=== PATIENT | male | born 1950 | race Caucasian/White ===

== ENCOUNTER → 2017-06-12 | Outpatient (CLI) | payer OTHER, BC | LOC: FIMAGING 11:17 → EDSTATUS 11:18 | PROVIDERS: ATTEND Physician Assistant Medical | DX: J40 Bronchitis, not specified as acute or chronic (principal); J98.4 Other disorders of lung; I25.10 Atherosclerotic heart disease of native coronary artery without angina pectoris; Z87.74 Personal history of (corrected) congenital malformations of heart and circulatory system ==

== ENCOUNTER → 2017-06-14 | Outpatient (CLI) | payer OTHER, BC ==
[~2017-06-14] MED LIST: IOPAMIDOL (ISOVUE-300) 100 ML BTL ONE
== END ==
LOC: CIMAGING 14:18
PROVIDERS: ATTEND Physician Assistant Medical
DX: R22.2 Localized swelling, mass and lump, trunk (principal)
CPT/HCPCS: 71260; Q9967

== ENCOUNTER → 2017-06-20 | Day surgery (SDC) | payer OTHER, BC ==
[~2017-06-20] MED LIST changes: +ACETAMINOPHEN 325 MG TAB PO PRN; +ALTEPLASE 2 MG VIAL IVP PRN; +FLUMAZENIL 0.5 MG/5 ML MDV IVP ONE; +FLUMAZENIL 0.5 MG/5 ML MDV IVP PRN; +GLUCAGON HCL 1 MG VIAL IVP PRN; +HEPARIN 10,000 UNIT/10 ML MDV (1,000 UNIT/ML) IVP PRN; -IOPAMIDOL (ISOVUE-300) 100 ML BTL ONE; +MEPERIDINE 25 MG/ML SYR IVP PRN; +MIDAZOLAM 2 MG/2 ML VIAL IVP PRN; +MIDAZOLAM 2 MG/2 ML VIAL ONE; +NALOXONE HCL 0.4 MG/ML INJ IVP PRN; +NALOXONE HCL 0.4 MG/ML INJ ONE; +NS 1,000 ML IV SCH; +ONDANSETRON 4 MG/2 ML VIAL ONE; +PROTAMINE SULFATE 50 MG/5 ML VIAL IVP PRN; +fentaNYL 100 MCG/2 ML INJ IVP PRN; +fentaNYL 100 MCG/2 ML INJ ONE
[2017-06-20 08:09] LABS: INR 1.19 (0.83-1.16); PROTIME(PATIENT) 15.3 SEC (12.0-15.0)
--- NOTE | 2017-06-20 08:35 | PDRADPRE ---
Radiology History & Physical Indication for procedure: lung nodule/mass Significant medical history: hypertension, diabetes, heart disease Surgical history: CABG, cholecystectomy Home medications: Aspirin 81mg (*) 81 mg PO DAILY 06/19/17 [Last Taken Unknown] Basaglar Kwikpen U-100 44 units SQ DAILY 06/19/17 [Last Taken Unknown] Cozaar 100 mg PO DAILY 06/19/17 [Last Taken Unknown] Fish Oil 1,[address] 1,000 mg PO BID 06/19/17 [Last Taken Unknown] GLIPIZIDE 10 mg PO BID 06/19/17 [Last Taken Unknown] Lamictal 400 mg PO DAILY 06/19/17 [Last Taken Unknown] Lipitor 20 mg (*) 20 mg PO DAILY 06/19/17 [Last Taken Unknown] Melatonin 5 mg 5 mg PO PRN PRN 06/19/17 [Last Taken Unknown] Metformin HCl ER 1,000 mg PO BID 06/19/17 [Last Taken Unknown] Metoprolol Tartrate 25 mg PO BID 06/19/17 [Last Taken 06/20/17 25mg] Omeprazole 20 mg PO DAILY 06/19/17 [Last Taken Unknown] Risperidone 1 mg PO DAILY 06/19/17 [Last Taken Unknown] Allergies/Adverse Reactions: Penicillins Allergy (Intermediate, Verified 06/19/17 16:04) Swelling/neck,face,throat Mental status: A&Ox3 Heart exam: regular rate and rhythm Lungs exam: clear to auscultation Mallampati Score: Class 2
--- NOTE | 2017-06-20 10:03 | PDPROPOC ---
Sedation Plan of Care Sedation Plan of Care: patient educated of risks, benefits, alternatives, patient can tolerate sedation ASA Classification: ASA 1 Planned drugs: fentanyl, midazolam Mallampati Score: Class 2 Mallampati Reference Image: Patient passed 3-3-2 rule?: Yes
--- NOTE | 2017-06-20 10:03 | PDRADPN ---
Radiology Procedure Note Date of Procedure: 06/20/17 Radiologist: Juanito Charles Hopper Filler(s): Shantal Lemos Anesthesia: LMA, Local (Specify) Inf/Abcess present in the surg proc area at time of surgery?: No Depth: Organ Space EBL: Minimal Specimen(s): 20 ga core biopsy x3
[2017-06-20 10:47] VITALS: TEMP 97
[2017-06-20 13:46] VITALS: BP 138/83; PULSE 68; RESP 15; O2SAT 97
== END | disposition home or self-care (01) ==
LOC: FIMAGING 06:53
PROVIDERS: ATTEND Physician Assistant Medical
PROC: 0BBL3ZX Excision of Left Lung, Percutaneous Approach, Diagnostic (ICD-10-PCS; principal; 2017-06-20 10:25)
DX: C34.90 Malignant neoplasm of unspecified part of unspecified bronchus or lung (principal); I25.10 Atherosclerotic heart disease of native coronary artery without angina pectoris; F31.60 Bipolar disorder, current episode mixed, unspecified; E11.9 Type 2 diabetes mellitus without complications; E78.5 Hyperlipidemia, unspecified; Z95.1 Presence of aortocoronary bypass graft; I10 Essential (primary) hypertension; Z88.0 Allergy status to penicillin; Z87.891 Personal history of nicotine dependence
CPT/HCPCS: J2250; J2310; J2405; J3010

== ENCOUNTER → 2017-07-11 | Outpatient (CLI) | payer OTHER, BC | LOC: BHFA 11:00 | PROVIDERS: ATTEND Internal Medicine Cardiovascular Disease | DX: Z01.818 Encounter for other preprocedural examination (principal) ==

== ENCOUNTER 2017-07-12 06:03 | Day surgery (SDC) | payer OTHER, BC ==
[2017-07-12] MEDS ORDERED: LR 1,000 ML IV ONE (06:18)
[2017-07-12 06:45] VITALS: PULSE 81; RESP 16
[2017-07-12] MEDS ORDERED: LIDOCAINE 2% JELLY 5 ML TUBE ONE (07:16)
[2017-07-12] MEDS ORDERED: LIDOCAINE 1% 300 MG/30 ML SDV ONE (07:16)
[2017-07-12] MEDS ORDERED: ALBUTEROL 3 ML DEYVIAL ONE (07:16)
[2017-07-12] MEDS ORDERED: MIDAZOLAM 2 MG/2 ML VIAL ONE (07:24)
[2017-07-12] MEDS ORDERED: fentaNYL 100 MCG/2 ML INJ ONE (07:25)
--- NOTE | 2017-07-12 07:32 | PDHPUP ---
History & Physical Update H&P update statement: This history and physical update is based on an assessment of the patient which was completed after admission or registration (within 24 hours), but prior to the surgery/procedure. H&P update: H&P reviewed & patient examined, no change in patient's condition since H&P completed
--- NOTE | 2017-07-12 07:33 | PDPROPOC ---
Sedation Plan of Care Sedation Plan of Care: vital signs stable, mental status noted, patient educated of risks, benefits, alternatives, patient can tolerate sedation ASA Classification: ASA 2 Planned drugs: fentanyl, midazolam Mallampati Score: Class 2 Mallampati Reference Image: Patient passed 3-3-2 rule?: Yes
[2017-07-12] MEDS ORDERED: MIDAZOLAM 2 MG/2 ML VIAL IVP ONE (08:21)
[2017-07-12] MEDS ORDERED: fentaNYL 100 MCG/2 ML INJ IVP ONE (08:22)
[2017-07-12] MEDS ORDERED: ALBUTEROL 3 ML DEYVIAL IH ONE (08:22)
--- NOTE | 2017-07-12 08:34 | BVPULMO ---
[facility] Surgical Services- Pulmonology Patient Name: Polo Yusuf Procedure Date: 07/12/2017 7:49 AM Patient Type: Outpatient Attending MD/ER Physician: Garcia Campos MD Procedure: Bronchoscopy Indications: Lung mass Providers: Garcia Campos MD Medicines: Lidocaine 4% via nebulizer with Albuterol 2.5 mg, Lidocaine 1% applied to cords 2 mL, Lidocaine 1% applied to the tracheobronchial tree mL, Fentanyl mcg IV, Mida zolam mg IV Complications: Significant bleeding requiring epinephrine Procedure: After informed consent, a time out was performed. N95 masks were worn, and the procedure was done in a negative pressure room. The patient was given appropria te topical anesthesia and intravenous sedation. The fiberopic bronchoscope was pas sed via a bite block orally into the larynx and subsequently into the lower trachea bronchial tree. Throughout the procedure, the patient's blood pressure, pulse, and oxygen saturations were monitored continuously. The Bronchoscope (Video) was introduced through the mouth and advanced to the left lung only. The procedure was accomplished without difficulty. The patient tolerated the procedure well. Findings: Specific locations: The following were directly visualized, and are normal: lar ynx, vocal cord motion, trachea, ashley, left mainstem bronchus, right mainstem bron chus, bronchus intermedius, left upper lobe including subsegments,left lower lobe including subsegments, right upper lobe including subsegments, right middle lob e including subsegments, right lower lober including subsegments. Transbronchial biopsies of a mass were performed in the superior lingula segmen t of the left upper lobe using alligator forceps. The procedure was guided by fluoroscopy. Transbronchial biopsy technique was selected because the sampling site was not visible endoscopically. The sampling device penetrated the full thickne ss of the bronchial wall to obtain the biopsy of lung tissue. Six biopsy passes were performed. Six biopsy samples were obtained. Washings were obtained. The return was bloody. Post Op Diagnosis: - Lung mass - Transbronchial lung biopsies were performed. - Washings were obtained. - The examination was normal. Estimated Blood Loss: Estimated blood loss: none. Recommendation: - The patient will be observed post-procedure, until all discharge criteria are met. - The patient was advised to call or return to the clinic if there are signs or symptoms suggesting a complication/adverse reaction from the procedure. Garcia Campos MD Garcia Campos MD 07/12/2017 8:34:05 AM This report has been signed electronicallyGarcia Campos MD Number of Addenda: 0 Note Initiated On: 07/12/2017 7:49 AM [email or web address]
[2017-07-12 09:19] VITALS: BP 112/57; O2SAT 91
[2017-07-12 09:44] VITALS: TEMP 97.7
== END 2017-07-12 09:40 | disposition home or self-care (01) ==
LOC: FSGY 06:03
PROVIDERS: ATTEND Internal Medicine Critical Care Medicine
PROC: BB13ZZZ Fluoroscopy of Left Lung (ICD-10-PCS; principal; 2017-07-12 07:30)
PROC: 0B9G8ZX Drainage of Left Upper Lung Lobe, Via Natural or Artificial Opening Endoscopic, Diagnostic (ICD-10-PCS; principal; 2017-07-12 07:30)
PROC: 0BBG8ZX Excision of Left Upper Lung Lobe, Via Natural or Artificial Opening Endoscopic, Diagnostic (ICD-10-PCS; principal; 2017-07-12 07:30)
DX: R91.8 Other nonspecific abnormal finding of lung field (principal); R06.02 Shortness of breath; J44.9 Chronic obstructive pulmonary disease, unspecified; I25.10 Atherosclerotic heart disease of native coronary artery without angina pectoris; E11.40 Type 2 diabetes mellitus with diabetic neuropathy, unspecified; E78.5 Hyperlipidemia, unspecified; I10 Essential (primary) hypertension; G47.33 Obstructive sleep apnea (adult) (pediatric); Z87.891 Personal history of nicotine dependence; Z82.49 Family history of ischemic heart disease and other diseases of the circulatory system; Z95.1 Presence of aortocoronary bypass graft; Z88.0 Allergy status to penicillin
CPT/HCPCS: J0171; J2250; J3010; J7613

== ENCOUNTER → 2017-07-13 | Outpatient (CLI) | payer OTHER, BC | LOC: BHFA 09:30 | PROVIDERS: ATTEND Internal Medicine Cardiovascular Disease | DX: R06.00 Dyspnea, unspecified (principal) | CPT/HCPCS: 78452; 93017; A9500; J2785 ==

== ENCOUNTER → 2017-08-01 | Outpatient (CLI) | payer OTHER, BC | LOC: BHFA 10:00 | PROVIDERS: ATTEND Internal Medicine Cardiovascular Disease | DX: R06.02 Shortness of breath (principal); R01.1 Cardiac murmur, unspecified ==

== ENCOUNTER 2017-08-03 09:45 | Inpatient (IN) | payer OTHER, BC ==
[~2017-08-03 09:45] MED LIST changes: -ACETAMINOPHEN 325 MG TAB PO PRN; -ALTEPLASE 2 MG VIAL IVP PRN; -FLUMAZENIL 0.5 MG/5 ML MDV IVP ONE; -FLUMAZENIL 0.5 MG/5 ML MDV IVP PRN; -GLUCAGON HCL 1 MG VIAL IVP PRN; -HEPARIN 10,000 UNIT/10 ML MDV (1,000 UNIT/ML) IVP PRN; -MEPERIDINE 25 MG/ML SYR IVP PRN; -MIDAZOLAM 2 MG/2 ML VIAL IVP PRN; -MIDAZOLAM 2 MG/2 ML VIAL ONE; -NALOXONE HCL 0.4 MG/ML INJ IVP PRN; -NALOXONE HCL 0.4 MG/ML INJ ONE; -NS 1,000 ML IV SCH; -ONDANSETRON 4 MG/2 ML VIAL ONE; -PROTAMINE SULFATE 50 MG/5 ML VIAL IVP PRN; +VANCOMYCIN 1.5 GM in NS 250 ML IV ONE; +VANCOMYCIN PHARMACY TO DOSE MISC ONE; -fentaNYL 100 MCG/2 ML INJ IVP PRN; -fentaNYL 100 MCG/2 ML INJ ONE
[2017-08-03] MEDS ORDERED: LIDOCAINE 1% 5 ML SDV ID PRN (10:33)
[2017-08-03] MEDS ORDERED: NON-FORMULARY NEW DRUG (Melatonin [Melatonin 5 Mg] 5 MG) PO PRN (10:49)
[2017-08-03] MEDS ORDERED: LR 1,000 ML IV ONE (10:51)
[2017-08-03] MEDS ORDERED: LIDOCAINE 1% 2 ML INJ ID PRN (10:51)
[2017-08-03] MEDS ORDERED: MIDAZOLAM 2 MG/2 ML VIAL IVP ONE (11:33)
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
[2017-08-03] MEDS ORDERED: fentaNYL 250 MCG/5 ML INJ ONE (11:49)
[2017-08-03] MEDS ORDERED: PROPOFOL/EMULSION 500 MG/50 ML BOTTLE IV ONE (11:49)
[2017-08-03] MEDS ORDERED: BUPIVACAINE 0.25% 30 ML SDV ONE ×3 (11:56→15:22)
[2017-08-03] MEDS ORDERED: MIDAZOLAM 2 MG/2 ML VIAL ONE (12:02)
[2017-08-03] MEDS ORDERED: MELATONIN 3 MG TAB PO PRN (12:14)
[2017-08-03] MEDS ORDERED: morphINE PF 5 MG/10 ML INJ ONE (12:58)
[2017-08-03] MEDS ORDERED: diphenhydrAMINE 25 MG CAP PO PRN ×2 (13:09→16:39)
[2017-08-03] MEDS ORDERED: NALOXONE HCL 0.4 MG/ML INJ IVP PRN ×3 (13:09→16:39)
[2017-08-03] MEDS ORDERED: METOCLOPRAMIDE 10 MG/2 ML VIAL IVP PRN ×2 (13:09→16:39)
[2017-08-03] MEDS ORDERED: ONDANSETRON 4 MG/2 ML VIAL IVP PRN ×3 (13:09→16:39)
[2017-08-03] MEDS ORDERED: NARCOTIC DRIP BAG-TOTAL ALL TYPES EP PRN (13:09)
[2017-08-03] MEDS ORDERED: ALBUMIN 5% 250 ML BOTTLE IV ONE (13:53)
[2017-08-03] MEDS ORDERED: SUGAMMADEX SODIUM 200 MG/2 ML VIAL IVP ONE (14:27)
[2017-08-03] MEDS ORDERED: ROCURONIUM 100 MG/10 ML VIAL ONE (14:27)
[2017-08-03] MEDS ORDERED: ONDANSETRON 4 MG/2 ML VIAL ONE (14:27)
[2017-08-03] MEDS ORDERED: fentaNYL 100 MCG/2 ML INJ ONE ×2 (14:30→15:17)
[2017-08-03] MEDS ORDERED: PROPOFOL 200 MG/20 ML VIAL ONE (14:36)
[2017-08-03] MEDS ORDERED: KETOROLAC 15 MG/1 ML SDV IVP PRN (14:51)
[2017-08-03] MEDS ORDERED: D50W 25 GM/50 ML SYR IVP PRN (14:52)
[2017-08-03] MEDS ORDERED: BISACODYL 10 MG SUPP PR PRN (14:59)
[2017-08-03] MEDS ORDERED: LACTULOSE 20 GM/30 ML UDCUP PO PRN (14:59)
[2017-08-03] MEDS ORDERED: MAGNESIUM HYDROXIDE 30 ML UDCUP PO PRN (14:59)
[2017-08-03] MEDS ORDERED: POLYETHYLENE GLYCOL 3350 17 GM PKT PO PRN (14:59)
[2017-08-03] MEDS ORDERED: IPRATROPIUM/ALBUTEROL 3 ML DEYVIAL IH PRN (15:04)
[2017-08-03] MEDS ORDERED: ALBUTEROL 3 ML DEYVIAL IH PRN (15:19)
[2017-08-03] MEDS ORDERED: HYDROmorphONE/DILAUDID 2 MG/ML INJ IVP PRN (15:19)
[2017-08-03] MEDS ORDERED: KETOROLAC 30 MG/1 ML SDV ONE (15:26)
[2017-08-03] MEDS: fentaNYL 100 MCG/2 ML INJ IVP PRN ×2 (15:28→15:35)
--- NOTE | 2017-08-03 15:34 | PDMN ---
Medical Necessity Medical necessity: Pt meets IP criteria; [facility] IP only surgery CPT 46119 Thoracotomy
[2017-08-03] MEDS ORDERED: KETOROLAC 30 MG/1 ML SDV IVP ONE (15:38)
[2017-08-03] MEDS ORDERED: HYDROmorphONE/DILAUDID 2 MG/ML INJ ONE (15:39)
[2017-08-03] MEDS ORDERED: HYDROmorph 10MCG/ML&BUP 0.1% in 100ML NS EP SCH (16:39)
--- NOTE | 2017-08-03 16:53 | POSTANESTH ---
Post Anesthetic Evaluation Cardiovascular Status: Normal, Stable Respiratory Status: Normal, Stable Level of Consciousness/Mental Status: Moderately Sleepy Pain Control: Adequate, Prn Tx Ordered Nausea/Vomiting Control: Adequate, Prn Tx Ordered Complications Possibly Related to Anesthesia: None Noted
--- NOTE | 2017-08-03 17:59 | GOP ---
[f rep st] OPERATIVE REPORT DATE OF OPERATION: 08/03/2017 SURGEON: Roland Morales DO UNIT CONTROLLER: Sandra Gage, PAC ANESTHESIOLOGIST: Cynthia Alcantara MD. PREOPERATIVE DIAGNOSIS: Left lingular mass. POSTOPERATIVE DIAGNOSIS: Left lingular mass. PROCEDURE PERFORMED: Left lingular resection with lymph node sampling. FINDINGS: The patient presented with a newly diagnosed lingular mass suspicious for carcinoma. Need le biopsies were nondiagnostic. CT scan showed no significant adenopathy or other pulmonary lesions. He was referred for surgical intervention. Discussions preoperatively were made at length with the patient and his , who is a retired ICU nurse. His initial complaint presenting was shortness of breath of new onset. This gentleman did have coronary bypass grafting in the remote past. Nuclear study showed no ischemia. We discussed the options of observation versus surgical intervention. I q uoted him a 70% risk of cancer in his age group and for that reason he was consented to open biopsy w ith lymph node sampling. Because of his shortness of breath, he was more concerned about quality of life than quantity of life, his quote, and for that reason we discussed the merits of full lobectomy versus partial resection with a good margin on the mass and lymph node sampling. He preferred that a pproach to avoid worsening his shortness of breath of undiagnosed etiology. He did have pulmonary fu nction studies which were mildly abnormal, but did not explain his dyspnea complaints. DESCRIPTION OF PROCEDURE: He was consented for surgery, brought to the operating room, intubated, mo nitoring lines were placed. He was prepped and draped in sterile classical manner. 5th intercostal muscle-sparing thoracotomy was performed in the midaxillary line. A rib retractor was placed. We th en used a scope to take down adhesions from previous mammary artery harvesting on the anterior surfac e of the upper lobe and at the apex. The mammary artery was preserved. We did staple across a small portion of lung which was densely adherent to the area of the mammary to avoid any disruption or inj ury to it. An Endostapler was utilized for that. Remainder of the lung was freed up. The hilum was explored. It was very difficult to find any nodes whatsoever and those that were found were very an thracotic and quite small. Inferior hilar, anterior and intralobar lymph nodes were sent for permane nt section, although they grossly appeared normal and quite small. We then identified the mass in th e lingula. A LUIS stapler was used to take a 1-2 cm margin around the mass which was palpable and sen t that to Pathology. 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 A small amount of BioGlue was placed on a raw surface area where there was a small air leak with distention. A single chest tube was placed. The wound was closed. 0.25% Marcaine with epinephrine was used to infiltrate the intercostal space s, and an epidural had been placed prior. Patient was then returned to recovery room in stable condi tion. /[id number]/MODL
[2017-08-03] MEDS: INSULIN LISPRO 100 UNIT/ML SC SCH (18:19)
[2017-08-03] MEDS: SENNOSIDES/DOCUSATE SODIUM TAB PO SCH (21:14)
[2017-08-03] MEDS: lamoTRIgine 100 MG TAB PO SCH (21:14)
[2017-08-03] MEDS: VANCOMYCIN 1.5 GM in NS 250 ML IV SCH (22:35)
[2017-08-03] MEDS ORDERED: VANCOMYCIN 1.5 GM in D5W 250 ML IV SCH (23:00)
[2017-08-04] MEDS: HYDROmorph 10MCG/ML&BUP 0.1% in 100ML NS EP SCH ×2 (02:36→15:10)
[2017-08-04] MEDS ORDERED: FUROSEMIDE 20 MG/2 ML VIAL ONE (05:31)
[2017-08-04] MEDS ORDERED: FUROSEMIDE 20 MG/2 ML VIAL IVP ONE (05:45)
[2017-08-04] MEDS ORDERED: NS 1,000 ML IV SCH (06:00)
--- NOTE | 2017-08-04 06:49 | SOAPPROG ---
SOAP Progress Note Assessment/Plan: Assessment: POD#1 left thoracotomy with wedge rsxn lingula and LN sampling. Thoracic epidural per anesthesia. 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 Await final path. Pain well controlled. No PTX. No significant CTOP. CAD - s/p remote CABG. No apparent periop ischemia. Secondary prevention with baby ASA, BB, and statin. DM2 - Suboptimal control by last A1c of 7.8%. Postop hyperglycemia managed with SSI. Hospitalist consulted for transition back to basal insulin and OHAs. Postop hyperkalemia - Unclear etiology. No EKG changes. Supportive therapies for now. Hx HTN - controlled on BB and ARB. Delay reinitiation of ARB until K normalized. Hx chronic thrombocytopenia - Baseline counts 140s-150s. Stable on VTE prophylaxis and NSAIDs. Plan: Repeat K. Interim lasix. Pleurovac to water seal. Consider chest tube removal later today. D/C epidural cath tomorrow. Keep raman until epidural out. Restart metoprolol tartrate 25 mg BID. IM to see re diabetic needs. Inc activity as tolerated. 08/04/17 06:45 Subjective: Doing ok. Admittedly "goofy" on pain meds. Yet to walk. Objective: Vital Signs Temp Pulse Resp BP Pulse Ox 36.6 C 110 H 16 129/57 H 96 08/04/17 03:59 08/04/17 03:59 08/04/17 03:59 08/04/17 03:59 08/04/17 03:59 Laboratory Results 08/04/17 03:50 08/04/17 04:30 08/03/17 08/04/17 08/05/17 05:59 05:59 05:59 Intake Total 2300 Output Total [address] with robust BPs. Excellent sats on 4 lpm. Likely could wean to 2-3 lpm. Positive fluid balance. CXR -> No PTX, no pulm vasc congestion, mild left basilar atelectasis, no undrained effusion. CTOP thin and dissipating. K likely hemolyzed. Repeat pending. Physical Exam - Physical Exam General Appearance: alert, no apparent distress Respiratory: lungs clear (grossly), other (Left thoracot CDI. CT to pleurovac, serosang drainage, nl tidal, no air leak) Cardiac/Chest: regular rate, rhythm, tachycardia Abdomen: non-tender, soft Male Genitalia: other (concentrated UOP in raman) Skin: warm/dry Extremities: other (no visible edema) ICD10 Worksheet Patient Problems: Problems Problem Status Onset Lingular mass Acute Mucinous adenocarcinoma Acute S/P thoracotomy Acute ~08/03/17
[2017-08-04] MEDS: INSULIN LISPRO 100 UNIT/ML SC SCH ×3 (08:31→18:20)
[2017-08-04] MEDS: METOPROLOL TARTRATE 25 MG TAB PO SCH ×2 (08:31→21:09)
[2017-08-04] MEDS: ASPIRIN EC 81 MG TAB PO SCH (08:31)
[2017-08-04] MEDS: SENNOSIDES/DOCUSATE SODIUM TAB PO SCH ×2 (08:32→21:09)
[2017-08-04] MEDS ORDERED: REGARDING ANTICOAG MISC SCH (09:00)
[2017-08-04] MEDS ORDERED: DC NARCS MISC SCH (09:00)
[2017-08-04] MEDS: REGARDING ANTICOAG MISC SCH (10:29)
[2017-08-04] MEDS: DC NARCS MISC SCH (10:29)
--- NOTE | 2017-08-04 11:12 | ASMTCMCOM ---
CM Note CM Note Notes: Patient is POD #1 left thoracotomy with wedge resection. Pathology pending. Discussed w RN, he feels that patient might benefit from a PT eval. Hospitalist to order. 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 CM will follow. Date Signed: 08/04/2017 11:11 AM Electronically Signed By:Kanchan Urias RN
--- NOTE | 2017-08-04 12:02 | SOAPPROG ---
SOAP Progress Note Assessment/Plan: Assessment: Good pain control with ed @ 6 cc/hr no change d/c tomorrow Plan: 08/04/17 12:00 Objective: Vital Signs Temp Pulse Resp BP Pulse Ox 36.4 C 98 18 142/64 H 98 08/04/17 07:53 08/04/17 11:43 08/04/17 11:43 08/04/17 07:53 08/04/17 11:43 Laboratory Results 08/04/17 03:50 08/04/17 07:37 08/03/17 08/04/17 08/05/17 05:59 05:59 05:59 Intake Total 2300 Output Total 1195 Balance 1105 ICD10 Worksheet Patient Problems: Problems Problem Status Onset S/P thoracotomy Acute ~08/03/17 Mucinous adenocarcinoma Acute Lingular mass Acute
--- NOTE | 2017-08-04 13:48 | GCON ---
[f rep st] CONSULTATION DATE OF CONSULTATION: 08/04/2017 REASON FOR CONSULTATION: Diabetes management. HISTORY OF PRESENT ILLNESS: A 67-year-old male with history of remote CABG, diabetes, hypertension, who presented to Cardiology with persistent shortness of breath. He describes intermittent episodes of shortness of breath lasting for several days and then he would feel well. The difficulty breathing could occur with walking or sitting. He described PND. Denied lower leg swelling or orthopnea. Intermittent lightheadedness with these episodes. An ischemic evaluation was deferred after chest x-ray showed a 2.5 cm mass in the lingula. Denies weight loss or weight gain. No change in appetite. The patient underwent left lingular mass resection and lymph node sampling 08/[address] Morales. REVIEW OF SYSTEMS: I completed a 10-point review of systems, negative except as noted in HPI. PAST MEDICAL HISTORY: 1. Lingular nodule. 2. Diabetes. 3. Hypertension. 4. Hyperlipidemia. 5. Coronary artery disease status post CABG. PAST SURGICAL HISTORY: 1. Vasectomy. 2. CABG. 3. Cholecystectomy. 4. Tonsillectomy and adenoidectomy. FAMILY HISTORY: Mother with a brain tumor. Father with cirrhosis, nonalcoholic. Paternal aunt with cancer. SOCIAL HISTORY: Lives in [place] with . Smoked 25 pack year history. No alcohol or illicits. ALLERGIES: Penicillin. HOME MEDICATIONS: Glargine Pen 46 units at bedtime, aspirin 81 mg daily, glipizide 10 mg twice daily, omega-3 1000 mg twice daily, melatonin 5 mg as needed, Cozaar 100 daily, atorvastatin 20 daily, metformin 1000 mg daily, Lamictal 400 at bedtime, omeprazole 20 mg daily, metoprolol 25 mg twice daily, Risperdal 1 mg daily. PHYSICAL EXAMINATION: VITAL SIGNS: Temperature 36.7, blood pressure 127/74, heart rate is 198 to 110, respiration 18 8, 98% on 3.5 L nasal cannula. GENERAL : Male sitting up in bed, in no acute distress. HEENT: PERRLA. EOMI. Oropharynx clear. CV: Regular rate and rhythm. LUNGS: Decreased breath sounds left base. Chest tube in place. GENITOURINARY: Guallpa in place with clear urine. Epidural in place. MUSCULOSKELETAL: Moving all 4 extremities. NEUROLOGIC: 2 through 12 intact. PSYCHIATRIC: Alert and oriented x3. Lethargic after pain medication. ASSESSMENT AND PLAN: 1. Diabetes with hyperglycemia: restart home glargine at a reduced dose given he is not eating much here. Will adjust as needed. Cont SSI. Hold orals with mild KATY. A1c is 7.8. 2. Lingular nodule: s/p resection and lymph node biopsy and pathology pending. 3. Hypertension. Resumed metoprolol. Holding losartan. 4. Hyperkalemia, 6.8 this morning, repeat 6.2. Had mild KATY. Repeat this afternoon. 5. Mild acute kidney injury. Creatinine is 1.1, baseline 0.8. Will renally dose medications. 6. Plan to discontinue epidural catheter tomorrow along with Guallpa. 7. Deep venous thrombosis prophylaxis. Sequential compression devices. 8. Diet. diabetic. Thank you for this consultation. We will follow along. Please call if any questions. /[id number]/MODL MTDD
[2017-08-04] MEDS: VANCOMYCIN 1.5 GM in NS 250 ML IV SCH (14:02)
--- NOTE | 2017-08-04 16:59 | GCON ---
[f rep st] CONSULTATION PULMONARY CONSULTATION DATE OF CONSULTATION: 08/04/2017 REASON FOR CONSULTATION: Intensive care unit evaluation and management following a partial lobectomy . HISTORY OF PRESENT ILLNESS: The patient is a very pleasant 67-year-old gentleman who was recently fo und incidentally to have a lingular lesion. Evaluation including percutaneous biopsy and bronchoscop y by Dr. Garcia Campos in our office revealed no specific diagnosis. Thus, surgical removal was felt to be indicated as the lesion was worrisome for malignancy. This was done yesterday. A partial lob ectomy was done with wedge resection of the lingula. All nodes sampled were negative. The prelimina ry frozen sections indicated possible adenocarcinoma. The patient was returned to the intensive care unit after the procedure with a subd[facility]. He is being followed by Anesthesia. Chest tube is in place. He does not hav e significant pain and is doing well postoperatively. PAST MEDICAL HISTORY: Coronary artery disease, coronary artery bypass grafting, type 2 diabetes. Hy pertension, hyperlipidemia, and recent shortness of breath/dyspnea on exertion. Previous surgical procedures, in addition to his CABG, have included a cholecystectomy and vasectomy. Medications on admission have included long-acting insulin at night, glipizide, metformin, aspirin, L ipitor, omeprazole, metoprolol, Risperdal, Cozaar and melatonin. DRUG ALLERGIES: Penicillin. SOCIAL HISTORY: . 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 The patient smoked cigarettes in the past, no longer smoking. No diagnosis of COPD. Significa nt alcohol is negative. FAMILY HISTORY: Noncontributory. REVIEW OF SYSTEMS: A 10-point review of systems is negative except as outlined above. PHYSICAL EXAMINATION: GENERAL: Reveals a pleasant gentleman, sitting up in a chair. He is alert, r esponsive. VITAL SIGNS: Blood pressure is approximately 140/60, heart rate 100 with sinus rhythm on the monitor. On 4 L, saturations are 96%. He is afebrile. HEENT: Unremarkable for lymphadenopath y or thyromegaly. There is no jugular venous distention. LUNGS: Clear anteriorly. Breath sounds a re diminished at the left base compared to the right. Some tube noises are present on the left, with a possible soft rub. Serosanguineous drainage is present from the patient's chest tube. There is n o obvious air leak. HEART: Regular in rate and rhythm. There are no significant murmurs, no gallop s. ABDOMEN: Soft, nontender. Bowel sounds are present, diminished. EXTREMITIES: Unremarkable for edema, cords, or tenderness. : A urinary catheter is in place, to be removed. ASSESSMENT: 1. Status post partial lobectomy involving the lingula. This is secondary to lung cancer, presumabl y stage I with presumptive diagnosis on frozen section of adenocarcinoma. This may be curative. He has not been seen by Oncology yet. 2. History of coronary artery disease. No issues identified. No chest pain. Stable. No evidence of congestive heart failure. 3. History of other medical problems as outlined above. Stable. 4. Hyperkalemia. This was noted postoperatively. The reason for this is unclear. He was not getti ng potassium supplementation and renal function appears normal. With intravenous fluids and Lasix, p otassium has decreased from a high of 6.8 to 4.9. There was no evidence of EKG changes by monitor. 5. Hyperglycemia. Secondary to diabetes. He is on long-acting insulin as well as sliding scale ins ulin. Oral agents are currently on hold. Both glipizide and metformin should be able to be restarte d. PLAN AND RECOMMENDATIONS: Patient will be kept in the intensive care unit until his subdural cathete r is removed, possibly tomorrow. Guallpa catheters to remain in place until then. Laboratory will be followed, including potassium. Insulin will be continued. Pain control will be maintained. His usu al medications as he is currently getting them will be continued. Chest x-ray will be followed. Further plans and recommendations will be made based on his progress over the next 12-24 hours. /[id number]/MODL
[2017-08-04] MEDS ORDERED: INSULIN GLARGINE 100 UNITS/ML UNIT SC SCH (21:00)
[2017-08-04] MEDS: lamoTRIgine 100 MG TAB PO SCH (21:09)
[2017-08-04] MEDS: SODIUM CL NASAL 45 ML BTL EACHNARE SCH (21:22)
[2017-08-05] MEDS: HYDROmorph 10MCG/ML&BUP 0.1% in 100ML NS EP SCH (03:25)
--- NOTE | 2017-08-05 07:34 | SOAPPROG ---
SOAP Progress Note Assessment/Plan: POD#2 Left thoracotomy with wedge rsxn lingula and LN sampling. Thoracic epidural per anesthesia. 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 Await final path. Pain well controlled. No PTX. No significant CTOP. CAD - s/p remote CABG. No apparent periop ischemia. Secondary prevention with baby ASA, BB, and statin. DM2 - Suboptimal control by last A1c of 7.8%. Postop hyperglycemia managed with SSI. Hospitalist following. Postop hyperkalemia - Unclear etiology. No EKG changes. Supportive therapies for now. Hx HTN - controlled on BB and ARB. Delay reinitiation of ARB until K normalized. Hx chronic thrombocytopenia - Baseline counts 140s-150s. Stable on VTE prophylaxis and NSAIDs. Plan: Will d/c chest tube today and check CXR in am. BMP in am since received Lasix today. D/C epidural cath today then transition to oral pain meds. Keep raman until epidural out. Inc activity as tolerated. Likely ready for discharge to home tomorrow. Subjective: Patient reports good pain control. Reports that the epidural makes him drowsy. Objective: Vital Signs Temp Pulse Resp BP Pulse Ox 36.9 C 92 16 137/71 H 95 08/05/17 07:24 08/05/17 07:24 08/05/17 07:24 08/05/17 07:24 08/05/17 07:24 Laboratory Results 08/05/17 03:09 08/05/17 03:09 08/04/17 08/05/17 08/06/17 05:59 05:59 06:59 Intake Total 2300 500 Output Total 1195 2227 Balance 1105 -1727 Physical Exam - Physical Exam General Appearance: WD/WN, alert, no apparent distress Respiratory: lungs clear, decreased breath sounds (bases L>R) Cardiac/Chest: regular rate, rhythm, other (left thoracotomy c/d/i without crepitus) Abdomen: normal bowel sounds, non-tender Skin: warm/dry Extremities: other (no lower extremity edema) Neuro/Psych: alert, normal mood/affect, oriented x 3 ICD10 Worksheet Patient Problems: Problems Problem Status Onset Lingular mass Acute Mucinous adenocarcinoma Acute S/P thoracotomy Acute ~08/03/17
[2017-08-05] MEDS: INSULIN LISPRO 100 UNIT/ML SC SCH ×3 (08:09→16:49)
[2017-08-05] MEDS: SENNOSIDES/DOCUSATE SODIUM TAB PO SCH ×2 (08:11→20:57)
[2017-08-05] MEDS: ASPIRIN EC 81 MG TAB PO SCH (08:11)
[2017-08-05] MEDS: risperiDONE 1 MG TAB PO SCH (08:12)
[2017-08-05] MEDS: METOPROLOL TARTRATE 25 MG TAB PO SCH ×2 (08:12→20:58)
[2017-08-05] MEDS ORDERED: PANTOPRAZOLE SODIUM 40 MG TAB PO SCH (09:00)
[2017-08-05] MEDS ORDERED: FUROSEMIDE 40 MG/4 ML VIAL IVP ONE (09:38)
[2017-08-05] MEDS ORDERED: POTASSIUM CL 20 MEQ TAB PO ONE ×3 (09:39→13:00)
[2017-08-05] MEDS ORDERED: INSULIN GLARGINE 100 UNITS/ML UNIT SC SCH (11:05)
--- NOTE | 2017-08-05 11:07 | HOSPPROG ---
Hospitalist Progress Note Assessment/Plan: #Diabetes with hyperglycemia: -increase glargine to home dose 46 units #Left lingula nodule: s/p resection #HTN: restart Losartan tomorrow if Cr stable #Hyperkalemia: resolved. #Mild KATY: repeat BMP #HLD: statin #CAD: statin, ASA, BB #Deconditioning: PT #Diet: regular #DVT ppx: SCDs Please call if any questions. Subjective: chest tube out. Taking deeper breathes Objective: Vital Signs Temp Pulse Resp BP Pulse Ox 36.9 C 91 16 137/71 H 95 08/05/17 07:24 08/05/17 08:12 08/05/17 07:24 08/05/17 08:12 08/05/17 07:24 Laboratory Results 08/05/17 03:09 08/05/17 03:09 08/04/17 08/05/17 08/06/17 05:59 05:59 06:59 Intake Total 2300 500 Output Total 1195 2227 Balance 1105 -1727 - Physical Exam Constitutional: no apparent distress Eyes: PERRL Ears, Nose, Mouth, Throat: moist mucous membranes, hearing normal Cardiovascular: regular rate and rhythym, no murmur, rub, or gallop Respiratory: other (CT site dressed, CDI) Gastrointestinal: normoactive bowel sounds, soft, non-tender abdomen Genitourinary: no bladder fullness Skin: warm Musculoskeletal: full muscle strength Neurologic: AAOx3, CN II-XII Intact Psychiatric: interacting appropriately ICD10 Worksheet Patient Problems: Problems Problem Status Onset Lingular mass Acute Mucinous adenocarcinoma Acute S/P thoracotomy Acute ~08/03/17
[2017-08-05] MEDS: FAMOTIDINE 20 MG TAB PO SCH ×2 (12:30→20:57)
[2017-08-05] MEDS: DC NARCS MISC SCH (12:35)
[2017-08-05] MEDS: SODIUM CL NASAL 45 ML BTL EACHNARE SCH ×2 (12:36→22:00)
[2017-08-05] MEDS: REGARDING ANTICOAG MISC SCH (12:36)
--- NOTE | 2017-08-05 13:41 | SOAPPROG ---
SOAP Progress Note Assessment/Plan: Assessment: POD #2-CTE working. Site clean and dry. Plan:pull CTE. cath out, tip intact. PO ordered 08/05/17 13:39 Objective: Vital Signs Temp Pulse Resp BP Pulse Ox 36.7 C 88 17 144/83 H 93 08/05/17 11:36 08/05/17 11:36 08/05/17 11:36 08/05/17 11:36 08/05/17 11:36 Laboratory Results 08/05/17 03:09 08/04/17 08/05/17 08/06/17 05:59 05:59 06:59 Intake Total 2300 500 Output Total 1195 2227 Balance 1105 -1727 - Pending Discharge Pending Discharge Within 24 Hours: Yes Pending Discharge Date: 08/06/17 Pending Discharge Time: 11:00 ICD10 Worksheet Patient Problems: Problems Problem Status Onset Lingular mass Acute Mucinous adenocarcinoma Acute S/P thoracotomy Acute ~08/03/17
[2017-08-05] MEDS: OXYCODONE/APAP 5/325 TAB PO PRN ×2 (13:46→19:07)
[2017-08-05] MEDS: lamoTRIgine 100 MG TAB PO SCH (20:58)
[2017-08-06] MEDS: OXYCODONE/APAP 5/325 TAB PO PRN ×2 (00:20→10:11)
--- NOTE | 2017-08-06 07:36 | SOAPPROG ---
SOAP Progress Note Assessment/Plan: POD#3 Left thoracotomy with wedge rsxn lingula and LN sampling. Thoracic epidural per anesthesia. 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 Await final path. Pain well controlled. No PTX. No significant CTOP. Chest tube removed yesterday with no PTX seen on CXR today. CAD - s/p remote CABG. No apparent periop ischemia. Secondary prevention with baby ASA, BB, and statin. DM2 - Suboptimal control by last A1c of 7.8%. Postop hyperglycemia managed with SSI. Hospitalist following. Postop hyperkalemia - Unclear etiology with no EKG changes. Resolved. Hx HTN - controlled on BB and ARB. Currently with SBP 120-130's in SR 90's. Will increase Metoprolol to 50mg BID. Delay reinitiation of ARB for now. Hx chronic thrombocytopenia - Baseline counts 140s-150s. Stable on VTE prophylaxis and NSAIDs. Pain- controlled on Percocet. Epidural d/c'd yesterday. Plan: Will follow final path results. Inc activity as tolerated. D/c to home today with instructions to follow up with us in 10 days. Subjective: "I'm bored." Patient reports good pain control. Objective: Vital Signs Temp Pulse Resp BP Pulse Ox 36.8 C 86 16 123/81 H 93 08/06/17 03:42 08/06/17 03:42 08/06/17 03:42 08/06/17 03:42 08/06/17 03:42 Laboratory Results 08/05/17 03:09 08/06/17 03:14 08/05/17 08/06/17 08/07/17 04:59 05:59 05:59 Intake Total Output Total 200 Balance -200 Physical Exam - Physical Exam General Appearance: WD/WN, alert, no apparent distress Respiratory: lungs clear, other (no wheezing, rhonchi, rales) Cardiac/Chest: regular rate, rhythm (no murmur, left thoracotomy c/d/i without crepitus) Abdomen: normal bowel sounds, non-tender, soft Skin: warm/dry Extremities: other (warm, no edema) Neuro/Psych: alert, normal mood/affect, oriented x 3 ICD10 Worksheet Patient Problems: Problems Problem Status Onset Lingular mass Acute Mucinous adenocarcinoma Acute S/P thoracotomy Acute ~08/03/17
[2017-08-06] MEDS ORDERED: INSULIN GLARGINE 100 UNITS/ML UNIT SC SCH (08:21)
[2017-08-06] MEDS: INSULIN LISPRO 100 UNIT/ML SC SCH ×2 (08:50→12:54)
[2017-08-06] MEDS: ASPIRIN EC 81 MG TAB PO SCH (08:51)
[2017-08-06] MEDS: SENNOSIDES/DOCUSATE SODIUM TAB PO SCH (08:51)
[2017-08-06] MEDS: FAMOTIDINE 20 MG TAB PO SCH (08:52)
[2017-08-06] MEDS ORDERED: METOPROLOL TARTRATE 50 MG TAB PO SCH (09:00)
[2017-08-06] MEDS ORDERED: ATORVASTATIN CALCIUM 20 MG TAB PO SCH (09:00)
[2017-08-06] MEDS: risperiDONE 1 MG TAB PO SCH (09:47)
[2017-08-06] MEDS: SODIUM CL NASAL 45 ML BTL EACHNARE SCH (09:48)
[2017-08-06 11:57] VITALS: BP 108/67; PULSE 76; RESP 18; TEMP 98.6; O2SAT 97
--- NOTE | 2017-08-06 12:12 | PDHOMEO2F ---
Home Oxygen Face to Face Home Orders: I certify that a physician or a nurse practitioner or physician's promotions assistant sales marketing has had a [id number] encounter with this patient on the date of this order due to the diagnosis listed, which relates to the primary reason the patient requires home oxygen. Alternative treatments have been tried, or considered, and deemed ineffective. It is anticipated that supplemental oxygen will result in improvement with treatment. Home oxygen qualifying diagnosis: s/p thoracotomy Home oxygen secondary diagnosis: respiratory insufficiency SpO2 on room air (%): 86 Frequency of home oxygen needed: continuous Home oxygen liters per minute: 2 Home oxygen delivery device: nasal cannula Concentrator: Yes E-tanks for mobility and back up: Yes If ordering portable O2, is the patient mobile in the home?: Yes I certify that, based on these findings, the home oxygen is medically necessary for this patient for the following length of time. Length of time home oxygen needed: 99 years
--- NOTE | 2017-08-06 12:14 | PDIAF ---
- Diagnosis Code Status: Full Code - Medication Management Discharge Medications: Medications to Continue on Transfer Aspirin EC [Aspirin EC 81 mg (*)] 81 mg PO DAILY 06/19/17 [Last Taken 1 Week Ago ~07/27/17] Atorvastatin Calcium [Lipitor 20 mg (*)] 20 mg PO DAILY 06/19/17 [Last Taken 2 Days Ago ~08/01/17] Melatonin [Melatonin 5 mg] 5 mg PO HS PRN 06/19/17 [Last Taken 1 Day Ago ~] [place]-3 Fatty Acids [Fish Oil 1000 mg (*)] 1,000 mg PO BID 06/19/17 [Last Taken 1 Week Ago ~07/27/17] Omeprazole 20 mg PO DAILY 06/19/17 [Last Taken 2 Days Ago ~08/01/17] lamoTRIgine [LamICTAL 100 MG (*)] 400 mg PO HS 06/19/17 [Last Taken 2 Days Ago ~ 08/01/17] risperiDONE [Risperdal 1mg (*)] 1 mg PO DAILY 06/19/17 [Last Taken 1 Day Ago ~] Insulin Glargine,Hum.rec.anlog [Basaglar Kwikpen U-100] 50 unit SQ HS #0 [Last Taken 1 Day Ago ~08/02/17] Metoprolol Tartrate [Lopressor 50 mg (*)] 50 mg PO BID 30 Days tab 08/06/17 [ Last Taken Unknown] oxyCODONE/APAP 5/325 [Percocet 5/325 (*)] 1 - 2 tab PO Q4HRS PRN #50 tab [Last Taken Unknown] Discharge Medications: Refer to the Discharge Home Medication list for PRN reason. - Orders Services needed: Registered Nurse, Physical Therapy, Occupational Therapy Diet Recommendation: no restrictions on diet - Follow Up Care Current Providers and Referrals: Trudy Hardwick MD [Primary Care Provider] - Roland Morales DO [Doctor of Osteopathy] - 08/15/17 11:30 am
--- NOTE | 2017-08-06 12:34 | HOSPPROG ---
Hospitalist Progress Note Assessment/Plan: #Diabetes with hyperglycemia: -required 14 units SS. Rec increase to 50units at home and check daily sugars -resume glipizide, metformin #Left lingula nodule: s/p resection #HTN: increased BB. Stop Losartan with hyperkalemia and controlled BP #Hyperkalemia: resolved. #Mild KATY: repeat BMP #HLD: statin #CAD: statin, ASA, BB #Deconditioning: PT #Diet: regular #DVT ppx: SCDs Please call if any questions. Subjective: doing well this morning. Min SOB Objective: Vital Signs Temp Pulse Resp BP Pulse Ox 37.0 C 76 18 108/67 97 08/06/17 11:53 08/06/17 11:53 08/06/17 11:53 08/06/17 11:53 08/06/17 11:53 Laboratory Results 08/05/17 03:09 08/06/17 03:14 08/05/17 08/06/17 08/07/17 04:59 05:59 05:59 Intake Total Output Total 200 Balance -200 - Time Spent With Patient Time Spent with Patient: greater than 35 minutes Time Spent with Patient: Greater than 35 minutes spent on this patients care, greater than 50% of time spent counseling, educating, and coordinating care regarding the above mentioned plan. - Physical Exam Constitutional: no apparent distress Eyes: PERRL Ears, Nose, Mouth, Throat: moist mucous membranes Cardiovascular: regular rate and rhythym Respiratory: no respiratory distress Gastrointestinal: normoactive bowel sounds Genitourinary: no bladder fullness Skin: warm, other (left chest tube site dressed, ) Musculoskeletal: full muscle strength Neurologic: AAOx3, CN II-XII Intact Psychiatric: interacting appropriately Lymph, Heme, Immunologic: no cervical LAD ICD10 Worksheet Patient Problems: Problems Problem Status Onset S/P thoracotomy Acute ~08/03/17 Mucinous adenocarcinoma Acute Lingular mass Acute
--- NOTE | 2017-08-06 15:20 | GDS ---
[f rep st] DISCHARGE SUMMARY DISCHARGE DIAGNOSIS: Left lung lingular nodule. CONDITION ON DISCHARGE: Stable. REASON FOR HOSPITALIZATION: Lingular mass suspicious for carcinoma. HOSPITAL COURSE: The patient is a 67-year-old male, who presented with a newly diagnosed lingular mass that was suspicious for carcinoma. He was taken to the operating room by Dr. Roland Morales on August 03, 2017, where he underwent left lingular resection with lymph node sampling via left thoracotomy. A thoracic epidural was placed by anesthesia for postoperative pain control. The patient was transferred to recovery in stable condition. Preliminary frozen section was suggestive of mucinous adenocarcinoma. Awaiting final pathology. The patient's chest tube had minimal output and chest x-ray showed no pneumothorax. His chest tube was removed on postoperative day 2. His epidural was removed by anesthesia and his Gu[place]pa catheter was subsequently removed following the epidural removal. Internal medicine followed patient's diabetes. Uptitrated patient's Lantus insulin accordingly. The patient's pain was controlled with Percocet. The patient was tolerating his diet, he was passing flatus and had bowel movements. He was deemed appropriate for discharge to home on postoperative day 3. The patient was discharged on 2 L of home oxygen. He was instructed to follow up with us in 10 days and to follow up with Oncology as directed. MEDICATIONS AT DISCHARGE: 1. Metoprolol 50 mg p.o. b.i.d. 2. Percocet 5/325 one to two tablets p.o. q.4 hours p.r.n. pain. 3. Glipizide 10 mg p.o. b.i.d. 4. Metformin 1,000 mg p.o. daily. 5. Risperdal 1 mg p.o. daily. 6. Omeprazole 20 mg p.o. daily. 7. Melatonin 5 mg p.o. q.h.s. p.r.n. 8. Lipitor 20 mg p.o. daily. 9. Lamictal 400 mg p.o. q.h.s. 10. [place] 3 fatty acids 1,000 mg p.o. b.i.d. 11. Aspirin 81 mg p.o. daily. 12. Insulin glargine 50 units subcu q.h.s. PHYSICAL EXAMINATION DAY OF DISCHARGE: GENERAL APPEARANCE: Well-developed, well-nourished, alert, in no apparent distress. RESPIRATORY: Lungs clear. No wheezing, rhonchi, rales. CARDIAC/CHEST: Regular rate and rhythm, with no murmur. Left thoracotomy clean, dry and intact without crepitus. ABDOMEN: Normal bowel sounds, nontender, soft. SKIN: Warm and dry. EXTREMITIES: Warm , no edema. NEUROLOGIC/PSYCH: Alert, normal mood and affect. Oriented x3. INSTRUCTIONS PROVIDED TO PATIENT AT DISCHARGE: Patient was instructed to continue with his diabetic diet. Wound care: he was told to shower daily, and to not submerge his incisions, which includes taking baths, swimming or hot tubs , until his incisions are completely healed. FOLLOW UP APPOINTMENTS: Patient should follow up with Dr. Morales, with chest x- ray in 10 days, and he should follow up with his oncologist as directed. /[id number]/MODL MTDD
--- NOTE | 2017-08-06 18:02 | ASDISCHSUM ---
Discharge Information Plan Status:Home with No Needs Medically Cleared to Leave:08/05/2017 Discharge Date:08/05/2017 CM D/C Disposition:Home, Routine, Self-Care ADT D/C Disposition:Home Health Service Projected Discharge Date:08/06/2017 03:00 PM Transportation at D/C:Family Discharge Delay Reason: Follow-Up Date:08/06/2017 03:00 PM Discharge Slot: Final Diagnosis:DM w/ hyperglycemia, L lingula nodule, HTN Placement Information Patient Contact Information Contact Name:DEREK Relationship: Address:[address] Work Phone: City:[place] Phone: [facility]/Zip Code:[place] [address] Email: Financial Information Financial Class:Medicare Primary Plan Desc:MEDICARE INPATIENT Primary Plan Number:[id number] Secondary Plan Desc:[facility] Secondary Plan Number:[id number] Assessment Information [facility] CM Progress Note CM Note CM Note Notes: Patient is POD #1 left thoracotomy with wedge resection. Pathology pending. Discussed w RN, he feels that patient might benefit from a PT eval. Hospitalist to order. 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 CM will follow. Date Signed: 08/04/2017 11:11 AM Electronically Signed By:Kanchan Urias RN [facility] CM Progress Note CM Note CM Note Notes: Spke to patient and his -retired RN. They are not interested in being home bound, not interested in HC. No other needs at this time. Date Signed: 08/06/2017 02:46 PM Electronically Signed By:Loren Mccann LCSW Intervention Information Intervention Type:*IM-Signed Date of Service:08/06/2017 02:40 PM Patient Type:Inpatient Staff Member:CHRISTIE Mccann Judith Hours:0.25 Discipline:Project Mgr Severity: Comment:
[2017-08-06] MEDS ORDERED: OMEGA-3 FATTY ACIDS 1,000 MG CAP PO SCH (21:00)
== END 2017-08-06 15:19 | disposition home health service (06) | DRG 164 ==
LOC: F2N 10:06 → F2W 08-04 17:44
PROVIDERS: ADMIT Thoracic Surgery (Cardiothoracic Vascular Surgery); ATTEND Thoracic Surgery (Cardiothoracic Vascular Surgery)
PROC: 3E0R3BZ Introduction of Anesthetic Agent into Spinal Canal, Percutaneous Approach (ICD-10-PCS; principal; 2017-08-03 12:00)
PROC: 07B70ZZ Excision of Thorax Lymphatic, Open Approach (ICD-10-PCS; principal; 2017-08-03 12:00)
PROC: 00HU33Z Insertion of Infusion Device into Spinal Canal, Percutaneous Approach (ICD-10-PCS; principal; 2017-08-03 12:00)
PROC: 0BBL0ZZ Excision of Left Lung, Open Approach (ICD-10-PCS; principal; 2017-08-03 12:00)
DX: C34.12 Malignant neoplasm of upper lobe, left bronchus or lung (principal); E11.65 Type 2 diabetes mellitus with hyperglycemia; E11.21 Type 2 diabetes mellitus with diabetic nephropathy; Z79.4 Long term (current) use of insulin; E87.5 Hyperkalemia; N17.9 Acute kidney failure, unspecified; I10 Essential (primary) hypertension; E78.5 Hyperlipidemia, unspecified; E66.09 Other obesity due to excess calories; Z68.30 Body mass index [BMI] 30.0-30.9, adult; I25.10 Atherosclerotic heart disease of native coronary artery without angina pectoris; Z95.1 Presence of aortocoronary bypass graft
CPT/HCPCS: 97116-GP; 97161-GP; G8978-GP-CJ; G8979-GP-CI; J0171; J1170; J1815; J1885; J1940; J2250; J2274; J2405; J2704; J3010; J3370; P9041

== ENCOUNTER → 2017-08-15 | Outpatient (CLI) | payer OTHER, BC | LOC: FIMAGING 14:01 | PROVIDERS: ATTEND Thoracic Surgery (Cardiothoracic Vascular Surgery) | DX: R91.8 Other nonspecific abnormal finding of lung field (principal); J90 Pleural effusion, not elsewhere classified; S22.32XA Fracture of one rib, left side, initial encounter for closed fracture ==

== ENCOUNTER → 2017-08-16 | Outpatient (CLI) | payer OTHER, BC ==
[~2017-08-16] MED LIST changes: +LIDOCAINE 1% 300 MG/30 ML SDV ONE; -VANCOMYCIN 1.5 GM in NS 250 ML IV ONE; -VANCOMYCIN PHARMACY TO DOSE MISC ONE
--- NOTE | 2017-08-16 14:13 | PDRADPN ---
Radiology Procedure Note Date of Procedure: 08/16/17 Radiologist: Dwayne Miller Anesthesia: Local (Specify) Pre-op Diagnosis: left effusion Post-op Diagnosis: same Indication: therapeutic Procedure: thoracentesis Finding(s): 800mL serosanguinous Inf/Abcess present in the surg proc area at time of surgery?: No EBL: Minimal Complications: no
== END ==
LOC: FIMAGING 12:03
PROVIDERS: ATTEND Thoracic Surgery (Cardiothoracic Vascular Surgery)
PROC: 0W9B3ZZ Drainage of Left Pleural Cavity, Percutaneous Approach (ICD-10-PCS; principal; 2017-08-16)
DX: J90 Pleural effusion, not elsewhere classified (principal)

== ENCOUNTER → 2017-08-22 | Outpatient (CLI) | payer OTHER, BC | LOC: FIMAGING 11:11 | PROVIDERS: ATTEND Thoracic Surgery (Cardiothoracic Vascular Surgery) | DX: R91.8 Other nonspecific abnormal finding of lung field (principal); J90 Pleural effusion, not elsewhere classified ==

== ENCOUNTER 2017-08-27 17:26 | Emergency (ER) | payer OTHER, BC ==
[2017-08-27 17:36] VITALS: O2SAT 91
[2017-08-27] MEDS ORDERED: cefTRIAXone 1 GM VIAL IM ONE (18:25)
--- NOTE | 2017-08-27 18:30 | EDPHY ---
H & P Time Seen by Provider: 08/27/17 17:30 HPI/ROS: CHIEF COMPLAINT: Dysuria HISTORY OF PRESENT ILLNESS: Patient states last night he developed urgency and hesitancy. He was able to urinate and had chills and nausea immediately after urination around midnight last night. No vomiting. No fever. This morning dysuria and hesitancy continues but able to eat and drink normally. Blood sugars have been running a little bit high. No back pain. No abdominal pain. Had surgery 3 weeks ago for lung cancer and did have fully. Head urinary tract infection 5 years ago. No other recent illnesses. Uses oxygen at night. REVIEW OF SYSTEMS: Constitutional: No fever, chills last night. Eyes: No discharge. ENT: No sore throat. Cardiovascular: No chest pain, no palpitations. Respiratory: No cough, no shortness of breath. Gastrointestinal: No abdominal pain, no vomiting. Some nausea last night. Genitourinary: Dysuria, hesitancy, no retention Musculoskeletal: No back pain. Skin: No rashes. Neurological: No headache. General Appearance: Alert, no distress. Eyes: Pupils equal and round no pallor or injection. ENT, Mouth: Mucous membranes moist. Respiratory: There are no retractions, lungs are clear to auscultation. Healing surgical scar left upper lateral chest wall. Cardiovascular: Regular rate and rhythm. Gastrointestinal: Abdomen is soft and nontender, no masses, bowel sounds normal. Neurological: Alert, no focal neurologic deficits Skin: Warm and dry, no rashes. Musculoskeletal: Neck is supple nontender. Extremities are symmetrical, full range of motion, no edema. Psychiatric: Patient is oriented X 3, there is no agitation. Medical/surgical history: Coronary artery disease, insulin-dependent diabetes, lung cancer. CABG 4 vessel 2007, thoracotomy with partial lobectomy 3 weeks ago. Gallbladder surgery. Bipolar disorder Social history: Previous smoker. Lives with . Smoking Status: Former smoker Constitutional: Initial Vital Signs Temperature (C) 37.2 C 08/27/17 17:32 Heart Rate 82 08/27/17 17:32 Respiratory Rate 20 08/27/17 17:32 Blood Pressure 145/69 H 08/27/17 17:32 O2 Sat (%) 91 L 08/27/17 17:32 O2 Delivery Mode Room Air Allergies/Adverse Reactions: Penicillins Allergy (Intermediate, Verified 08/27/17 17:36) Swelling/neck,face,throat Home Medications: Medication Instructions Recorded Aspirin EC [Aspirin EC 81 mg (*)] 81 mg PO DAILY 06/19/17 Atorvastatin Calcium [Lipitor 20 20 mg PO DAILY 06/19/17 mg (*)] Melatonin [Melatonin 5 mg] 5 mg PO HS PRN 06/19/17 [place]-3 Fatty Acids [Fish Oil 1000 1,000 mg PO BID 06/19/17 mg (*)] Omeprazole 20 mg PO DAILY 06/19/17 lamoTRIgine [LamICTAL 100 MG (*)] 400 mg PO HS 06/19/17 risperiDONE [Risperdal 1mg (*)] 1 mg PO DAILY 06/19/17 Insulin Glargine,Hum.rec.anlog 50 unit SQ HS #0 08/06/17 [Basaglar Kwikpen U-100] Metoprolol Tartrate [Lopressor 50 50 mg PO BID 30 Days tab 08/06/17 mg (*)] glipiZIDE [Glipizide] 10 mg PO BID #60 tablet 08/06/17 metFORMIN HCL [Metformin HCl ER] 1,000 mg PO DAILY #30 tab.er.24 08/06/17 oxyCODONE/APAP 5/325 [Percocet 1 - 2 tab PO Q4HRS PRN #50 tab 08/06/17 5/325 (*)] Cephalexin [Keflex (*)] 500 mg PO Q6H #28 cap 08/27/17 Lasix 08/27/17 Potassium Chloride 08/27/17 Medical Decision Making ED Course/Re-evaluation: Recheck after IM ceftriaxone, no signs of allergic reaction. Urine culture ordered. Differential Diagnosis: Differential diagnosis includes but is not limited to urinary tract infection, pyelonephritis, urinary retention, urosepsis, diabetic ketoacidosis, prostatitis. After evaluation suspect urinary tract infection without signs of upper tract disease. Blood sugar 106 so low suspicion for diabetic complication. No fever or vomiting to suggest pyelonephritis. Abdominal exam is benign without signs of retention. Will start with IM ceftriaxone as patient with insulin-dependent diabetes and recently postop and relative immunocompromise. Discussed in detail continuation of oral antibiotics as outpatient. Reviewed return precautions and follow-up with PCP this week recommended. Stable for discharge. - Data Points Laboratory Results: 08/27/17 08/27/17 18:36 17:45 POC Glucose 106 mg/dL H mg/dL (70-100) Urine Color YELLOW Urine Appearance HAZY Urine pH 6.0 (5.0-7.5) Ur Specific [place] 1.020 (1.002-1.030) Urine Protein 1+ H (NEGATIVE) Urine Ketones NEGATIVE (NEGATIVE) Urine Blood 2+ H (NEGATIVE) Urine Nitrate POSITIVE H (NEGATIVE) Urine Bilirubin NEGATIVE (NEGATIVE) Urine Urobilinogen 0.2 EU EU (0.2-1.0) Ur Leukocyte Esterase 2+ H (NEGATIVE) Urine RBC 3-5 /hpf H /hpf (0-3) Urine WBC 50-182 /hpf H /hpf (0-3) Ur Epithelial Cells TRACE /lpf /lpf (NONE-1+) Urine Bacteria 3+ /hpf H /hpf (NONE SEEN) Urine Glucose NEGATIVE (NEGATIVE) Medications Given: Discontinued Medications Ceftriaxone Sodium (Rocephin 1 Gm Vial) 1 gm IM EDNOW ONE PRN Reason: Protocol Stop: 08/27/17 18:26 Last Admin: 08/27/17 18:37 Dose: 1 gm Point of Care Test Results: 08/27/17 18:36 POC Glucose 106 H Departure - Departure Disposition: Home, Routine, Self-Care Clinical Impression: Urinary tract infection Qualifiers: Urinary tract infection type: site unspecified Hematuria presence: with hematuria Qualified Code(s): N39.0 - Urinary tract infection, site not specified Condition: Good Instructions: Urinary Tract Infection in Men (ED) Additional Instructions: Follow up with your primary care physician this week without fail. Rest, stay well hydrated, start oral antibiotics tomorrow as discussed. Return to the emergency department if you develops fevers, vomiting, back pain or other worsening symptoms. Referrals: Trudy Hardwick MD [Primary Care Provider] - As per Instructions Prescriptions: Cephalexin [Keflex (*)] 500 mg PO Q6H #28 cap
[2017-08-27 19:04] VITALS: BP 117/81; PULSE 93; RESP 18; TEMP 98.8
== END 2017-08-27 19:02 | disposition home or self-care (01) ==
LOC: CED 17:26
DX: N39.0 Urinary tract infection, site not specified (principal); B96.89 Other specified bacterial agents as the cause of diseases classified elsewhere; E11.9 Type 2 diabetes mellitus without complications; I25.810 Atherosclerosis of coronary artery bypass graft(s) without angina pectoris; Z79.4 Long term (current) use of insulin; Z79.82 Long term (current) use of aspirin; Z85.118 Personal history of other malignant neoplasm of bronchus and lung; Z87.891 Personal history of nicotine dependence
CPT/HCPCS: 96372; 99284; J0696; 81003-PO; 81015-PO

== ENCOUNTER 2017-10-06 09:49 | Emergency (ER) | payer OTHER, BC ==
--- NOTE | 2017-10-06 10:30 | CPEKG ---
Heart Rate: 68 RR Interval: 882 P-R Interval: 172 QRSD Interval: 146 QT Interval: 412 QTC Interval: 439 P [place]: 71 QRS [place]: 94 T Wave [place]: -24 EKG Severity - ABNORMAL ECG - EKG Impression: SINUS RHYTHM EKG Impression: RBBB AND LPFB Electronically Signed By: Shyam Baird 09-Oct-2017 08:57:55
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
[2017-10-06] MEDS ORDERED: IPRATROPIUM/ALBUTEROL 3 ML DEYVIAL IH ONE (10:50)
[2017-10-06 11:03] LABS: PLATELET COUNT 164 10^3/uL (150-400)
[2017-10-06 12:33] VITALS: BP 143/83
== END 2017-10-06 12:33 | disposition home or self-care (01) ==
DX: R06.02 Shortness of breath (principal); I10 Essential (primary) hypertension; E11.9 Type 2 diabetes mellitus without complications; I25.810 Atherosclerosis of coronary artery bypass graft(s) without angina pectoris

== ENCOUNTER → 2017-12-07 | Outpatient (CLI) | payer OTHER, BC ==
[~2017-12-07] MED LIST changes: +IOPAMIDOL (ISOVUE 370) 100 ML BTL IV ONE; -LIDOCAINE 1% 300 MG/30 ML SDV ONE
== END ==
LOC: CIMAGING 13:58
PROVIDERS: ATTEND Internal Medicine Critical Care Medicine
DX: Z08 Encounter for follow-up examination after completed treatment for malignant neoplasm (principal); J98.4 Other disorders of lung; Z90.2 Acquired absence of lung [part of]
CPT/HCPCS: 71275; Q9967; 82565-PO

== ENCOUNTER → 2018-07-27 | Outpatient (CLI) | payer OTHER, BC | LOC: BHCLAF 10:45 | PROVIDERS: ATTEND Internal Medicine Cardiovascular Disease | DX: I10 Essential (primary) hypertension (principal); J44.9 Chronic obstructive pulmonary disease, unspecified | CPT/HCPCS: 93306-PO ==